=== PATIENT | female | born 1980 | race African-American/Black ===

== ENCOUNTER 2024-05-25 10:43 | Inpatient (IN) | payer OTHER ==
[2024-05-25 11:48] VITALS: BMI 20.3
[2024-05-25] MEDS ORDERED: ACETAMINOPHEN 325 MG TABLET (FP) PO PRN (12:26)
[2024-05-25] MEDS ORDERED: NICOTINE POLACRILEX 2 MG GUM BUC PRN (12:26)
[2024-05-25] MEDS ORDERED: DICYCLOMINE HCL 10 MG CAPSULE PO PRN (12:26)
[2024-05-25] MEDS ORDERED: POLYETHYLENE GLYCOL (HEALTHYLAX) 3350 17 GM PACKET PO PRN (12:26)
[2024-05-25] MEDS ORDERED: BENZONATATE 200 MG CAPSULE PO PRN (12:26)
[2024-05-25] MEDS ORDERED: BENZOCAINE/MENTHOL (CHLORASEPTIC ) LOZENGE MM PRN (12:26)
[2024-05-25] MEDS ORDERED: LOPERAMIDE HCL 2 MG CAPSULE PO PRN (12:26)
[2024-05-25] MEDS ORDERED: guaiFENesin 600 MG TABLET.ER (FP) PO PRN (12:26)
[2024-05-25] MEDS ORDERED: BISMUTH SUBSALICYLATE 262 MG/15 ML BTL PO PRN (12:26)
[2024-05-25] MEDS ORDERED: ONDANSETRON *ODT* 4 MG TABLET SL PRN (12:26)
[2024-05-25] MEDS ORDERED: MAGNESIUM HYDROX 2400MG/30ML ORAL SUSPENSION 30 ML CUP PO PRN (12:26)
[2024-05-25] MEDS ORDERED: NICOTINE POLACRILEX 2 MG LOZENGE BC PRN (12:26)
[2024-05-25] MEDS ORDERED: MAG HYDROX/AL HYDROX/SIMETH 30 ML UNIT-DOSE CUP PO PRN (12:26)
[2024-05-25] MEDS ORDERED: hydrOXYzine PAMOATE 25 MG CAPSULE (FP) PO PRN (12:26)
[2024-05-25] MEDS ORDERED: chlordiazePOXIDE HCL 25 MG CAPSULE ONE (12:42)
[2024-05-25] MEDS ORDERED: NICOTINE 21 MG/24 HOURS TOPICAL PATCH ONE (12:43)
[2024-05-25] MEDS ORDERED: IBUPROFEN 600 MG TABLET (FP) PO ONE (12:43)
[2024-05-25] MEDS: NICOTINE 21 MG/24 HOURS TOPICAL PATCH TD SCH (12:46)
[2024-05-25] MEDS: chlordiazePOXIDE HCL 25 MG CAPSULE PO ONE (12:46)
[2024-05-25] MEDS: IBUPROFEN 600 MG TABLET (FP) PO PRN (12:47)
[2024-05-25] MEDS: chlordiazePOXIDE HCL 25 MG CAPSULE PO SCH (17:27)
[2024-05-25] MEDS: MELATONIN 5 MG TABLETS PO SCH (22:43)
[2024-05-25] MEDS: THIAMINE 100 MG TABLET PO SCH (22:43)
[2024-05-25] MEDS: IBUPROFEN 400 MG TABLET (FP) PO PRN (22:46)
[2024-05-26] MEDS: PRENATAL VITAMINS W/ FOLIC ACID TABLET (FP) PO SCH (10:18)
[2024-05-26] MEDS: chlordiazePOXIDE HCL 25 MG CAPSULE PO PRN (14:06)
[2024-05-26] MEDS: METHOCARBAMOL 500 MG TABLET PO PRN (14:06)
[2024-05-26 17:43] VITALS: BP 139/107; PULSE 83; RESP 18; TEMP 98.9
[2024-05-26] MEDS ORDERED: SUVOREXANT 10 MG TABLET PO PRN (22:26)
[2024-05-27] MEDS ORDERED: chlordiazePOXIDE HCL 25 MG CAPSULE PO SCH (05:00)
[2024-05-28] MEDS ORDERED: chlordiazePOXIDE HCL 10 MG CAPSULE PO PRN
[2024-05-28] MEDS ORDERED: chlordiazePOXIDE HCL 10 MG CAPSULE PO SCH (05:00)
[2024-05-29] MEDS ORDERED: chlordiazePOXIDE HCL 10 MG CAPSULE PO SCH (05:00)
[2024-05-30] MEDS ORDERED: chlordiazePOXIDE HCL 10 MG CAPSULE PO ONE (05:00)
== END 2024-05-26 17:45 | disposition left against medical advice (07) | DRG 770 ==
LOC: YASAS 10:43 → Y6N 13:28
PROVIDERS: ADMIT Allergy & Immunology; ATTEND Surgery
PROC: HZ2ZZZZ Detoxification Services for Substance Abuse Treatment (ICD-10-PCS; principal; 2024-05-25)
DX: F10.230 Alcohol dependence with withdrawal, uncomplicated (principal); F17.210 Nicotine dependence, cigarettes, uncomplicated; F10.282 Alcohol dependence with alcohol-induced sleep disorder; F41.9 Anxiety disorder, unspecified
CPT/HCPCS: 80305; 80307